=== PATIENT | male | born 1975 | race African-American/Black ===

== ENCOUNTER 2021-01-04 15:42 | Emergency (ER) | payer OTHER ==
[~2021-01-04] VITALS: Ht 147.3 cm; Wt 60.0 kg
[2021-01-04] MEDS ORDERED: KETOROLAC 60MG/2ML VIAL IM ONE (17:00)
[2021-01-04 17:21] LABS: CLARITY URINE CLEAR (CLEAR); COLOR URINE YELLOW (YELLOW); KETONES URINE NEGATIVE (NEGATIVE); LEUKOCYTE ESTERASE URINE NEGATIVE (NEGATIVE); NITRITE URINE NEGATIVE (NEGATIVE); OCCULT BLOOD URINE NEGATIVE (NEGATIVE); PH URINE 6.5 (4.5-8.0); PROTEIN URINE NEGATIVE (NEGATIVE); SPECIFIC GRAVITY URINE 1.019 (1.005-1.030); UROBILINOGEN URINE 0.2 E.U./dL (0.2-1.0)
[2021-01-04 17:28] LABS: BASOPHILS % 0.8 % (0.0-2.0); HEMATOCRIT. 45.9 % (42.0-52.0); HEMOGLOBIN. 15.4 g/dL (14.0-18.0); LYMPHOCYTES % 59.7 % (20.0-50.0); MEAN CORPUSCULAR VOLUME 86.7 fL (80.0-94.0); MEAN PLATELET VOLUME 7.3 fl (7.4-10.4); MONOCYTES % 8.3 % (2.0-8.0); NEUTROPHILS % 29.2 % (40.0-76.0); PLATELET 304 x1000/uL (130-400); RED CELL DISTRIBUTION WIDTH 14.8 % (11.6-14.6)
[2021-01-04 17:35] LABS: CHLORIDE 108 mEq/L (98-107)
[2021-01-04 18:00] VITALS: BP 119/65
[2021-01-04] MEDS ORDERED: CIPR-263 MT (18:38)
[2021-01-04] MEDS ORDERED: IBUP-2028 MT (18:38)
== END 2021-01-04 18:49 | disposition home or self-care (01) ==
LOC: ER 15:42
DX: N39.0 Urinary tract infection, site not specified (principal); Z98.890 Other specified postprocedural states
CPT/HCPCS: 36415; 74176; 80053; 81003; 85025; 96372; 99284; J1885